=== PATIENT | female | born 1970 | race African-American/Black ===

== ENCOUNTER 2017-05-21 13:23 | Emergency (ER) | payer BC ==
[2017-05-21 14:48] LABS: INFLUENZA A PATIENT NEGATIVE (NEGATIVE)
[2017-05-21 14:50] LABS: INFLUENZA B PATIENT POSITIVE (NEGATIVE); OBC FLU VALID
[2017-05-21] MEDS ORDERED: ACETAMINOPHEN 500 MG TABLET PO (15:15)
[2017-05-21] MEDS ORDERED: IBUPROFEN 800 MG TABLET. PO (15:15)
[2017-05-21] MEDS: ONDANSETRON ODT 4 MG TAB.RAPDIS. PO (15:32)
[2017-05-21] MEDS: ACETAMINOPHEN 650 MG/20.3 ML SOLUTION. PO (15:40)
== END 2017-05-21 15:42 | disposition home or self-care (01) ==
LOC: ER 15:42
DX: J10.1 Influenza due to other identified influenza virus with other respiratory manifestations (principal)
CPT/HCPCS: 71046; 87804; 87804-59; 99285-25; Q0162

== ENCOUNTER 2020-11-09 02:43 | Emergency (ER) | payer BC, OTHER ==
[~2020-11-09] VITALS: Ht 154.9 cm; Wt 61.3 kg
[~2020-11-09 02:43] MED LIST: ONDA4TAB10 SL
[2020-11-09 04:08] LABS: BILIRUBIN,URINE NEGATIVE (NEG); CLARITY,URINE CLEAR; COLOR,URINE YELLOW; NITRITE,URINE NEGATIVE (NEG); PROTEIN,URINE NEGATIVE (NEG-TRACE)
[2020-11-09 04:19] LABS: BACTERIA,URINE 0 /HPF (0-FEW); RBC,URINE 0 /HPF (0-2); WBC,URINE OCC /HPF (0-4)
[2020-11-09] MEDS ORDERED: KETOROLAC 30 MG/ML VIAL. IM ONE (04:30)
[2020-11-09] MEDS ORDERED: LIDOCAINE (700MG/PATCH) PATCH. TD ONE (04:30)
[2020-11-09] MEDS ORDERED: HYDROmorphone 2 MG/ML VIAL IM ONE (04:30)
--- NOTE | 2020-11-09 06:02 | PHYS DOC ---
Past Medical History Past Medical History: No Pertinent History (EM JONES DO) Past Surgical History: Other Additional Past Surgical Histo: ENDOMETRIOSIS SX (EM JONES DO) Smoking Status: Never Smoker Alcohol Use: None Drug Use: None (EM JONES DO) General Adult EDM: Chief Complaint: BACK PAIN OR INJURY HPI: HPI: 50 old female who denies any significant past medical history presents the ED with complaints of low back pain rating to both sides that started just prior to arrival while working at [employer]. Patient states she knelt down to pick something up and felt something pull. Denies any prior back injury or trauma. No associated blunt injury. Denies any history of trauma, history of IV drug use, history of cancer, history of sciatica, history of malignancy, history of immunocompromise state, neurologic complaints including saddle anesthesia, weakness or paresthesias, urinary retention, bowel or bladder incontinence, night pain, fever/chills/night sweats, unexplained weight loss, anticoagulants or coagulopathy, prolonged steroid use, presence of contusions or abrasions. (EM JONES DO) Review of Systems: Review of Systems: Constitutional: Denies fever or chills. [] Eyes: Denies change in visual acuity. [] HENT: Denies nasal congestion or sore throat. [] Respiratory: Denies cough or shortness of breath. [] Cardiovascular: Denies chest pain or edema. [] GI: Denies nausea, vomiting, : Denies urinary or bowel retention or incontinence, denies saddle anesthesia Musculoskeletal: Denies cva ttp or joint pain. [] Integument: Denies rash or diaphoresis Neurologic: Denies headache, neck pain, focal weakness or sensory changes. [] Endocrine: Denies polyuria or polydipsia. [] Lymphatic: Denies swollen glands. [] Psychiatric: Denies depression or anxiety. [] (EM JONES DO) Heart Score: C/O Chest Pain: No Risk Factors: Risk Factors: DM, Current or recent (<one month) smoker, HTN, HLP, family history of CAD, obesity. Risk Scores: Score 0 - 3: 2.5% MACE over next 6 weeks - Discharge Home Score 4 - 6: 20.3% MACE over next 6 weeks - Admit for Clinical Observation Score 7 - 10: 72.7% MACE over next 6 weeks - Early Invasive Strategies (EM JONES DO) Current Medications: Current Medications Medications (Trade) Dose Ordered Sig/[facility] Start Time Stop Time Status Last Admin Dose Admin Hydromorphone HCl (Dilaudid) 1 mg 1X ONCE 11/09/20 04:30 11/09/20 04:31 DC 11/09/20 04:39 1 MG Ketorolac Tromethamine (Toradol 30mg Vial) 30 mg 1X ONCE 11/09/20 04:30 11/09/20 04:31 DC 11/09/20 04:36 30 MG Lidocaine (Lidoderm) 1 patch 1X ONCE 11/09/20 04:30 11/09/20 04:31 DC 11/09/20 04:41 1 PATCH (EM JONES DO) Allergies: Allergies: Allergies Coded Allergies Type Severity Reaction Last Updated Verified No Known Drug Allergies 05/21/17 No (EM JONES DO) Physical Exam: PE: Constitutional: Well developed, well nourished, no acute distress at rest, non- toxic appearance. HENT: Normocephalic, atraumatic, Eyes: EOMI, conjunctiva normal, no discharge. Neck: Normal range of motion, supple, Cardiovascular: S1/2 present, regular rhythm Lungs & Thorax: Speaking in full sentences, bilateral equal chest rise, no tachypnea or increased work of breathing Abdomen: soft, no tenderness, Skin: Warm, dry, no erythema, no rash. [] Back: ttp over L4/5 w/no step offs/normal appearing skin, no CVA tenderness. [] Extremities: No tenderness, no cyanosis, straight leg positive bilaterally but worse on right side Neurologic: Alert and oriented X 3, normal motor function, normal sensory function, no focal deficits noted. [] Psychologic: Affect normal, judgement normal, mood normal. [] (EM JONES DO) PE: Constitutional: Well developed, well nourished, no acute distress, non-toxic appearance HENT: Normocephalic, atraumatic Eyes: Conjunctiva normal, no discharge Neck: Normal range of motion, supple Lungs & Thorax: No respiratory distress, equal chest rise and fall Abdomen: Soft, no tenderness Skin: Warm, dry, no erythema, no rash Back: No midline tenderness, right paraspinal lumbar tenderness on palpation, no CVA tenderness Extremities: No tenderness, ROM intact, no edema Neurologic: Alert and oriented X 3, no focal deficits noted Psychologic: Affect normal, judgment normal (ANTONY ROSA DO) Current Patient Data: Labs: Laboratory Tests Test 11/09/20 03:53 Urine Collection Type Unknown Urine Color Yellow Urine Clarity Clear Urine pH 7.0 (<5.0-8.0) Urine Specific [place] >=1.030 (1.000-1.030) Urine Protein Negative mg/dL (NEG-TRACE) Urine Glucose (UA) Negative mg/dL (NEG) Urine Ketones (Stick) Trace mg/dL (NEG) Urine Blood Negative (NEG) Urine Nitrite Negative (NEG) Urine Bilirubin Negative (NEG) Urine Urobilinogen Dipstick 1.0 mg/dL (0.2 mg/dL) Urine Leukocyte Esterase Negative (NEG) Urine RBC 0 /HPF (0-2) Urine WBC Occ /HPF (0-4) Urine Squamous Epithelial Cells Few /LPF Urine Bacteria 0 /HPF (0-FEW) Urine Mucus Mod /LPF Vital Signs: Vital Signs Date Time Temp Pulse Resp B/P (MAP) Pulse Ox O2 Delivery O2 Flow Rate FiO2 11/09/20 04:39 18 100 Room Air 11/09/20 04:18 84 136/82 (100) 11/09/20 02:45 97.6 97.6 (EM JONES DO) EKG: EKG: [] (EM JONES DO) Radiology/Procedures: Radiology/Procedures: [] (EM JONES DO) Radiology/Procedures: PROCEDURE: CT LUMBAR SPINE WO CONTRAST INDICATION: Reason: back pain, disc herniation? / Spl. Instructions: / History: . COMPARISON: September 09, 2020 CT abdomen TECHNIQUE: Axial CT images obtained through the lumbar spine without contrast. One or more of the following individualized dose reduction techniques were utilized for this examination: 1. Automated exposure control; 2. Adjustment of the mA and/or kV according to patient size; 3. Use of iterative reconstruction technique. FINDINGS: No evidence of dislocation. Vertebral body heights are maintained. No definite acute fracture or dislocation. Bilateral renal stones at partially visualized abdomen. There is some degenerative changes of the lumbar spine with osteophyte formation the vertebral body endplates as well as disc protrusions with uncovertebral and facet hypertrophy. These disc protrusions are seen throughout the lumbar spine but most prominent at L3-4 L4-5 with mass effect on the anterior aspect of the thecal sac with mild narrowing of the central canal. There is also encroachment on the inferior aspect of the terminal foramina bilaterally which is mild. IMPRESSION: * No acute fracture or dislocation. * There is some degenerative changes of the lumbar spine with disc protrusions and mild osteophyte formation with facet and ligamentum flavum hypertrophy Electronically signed by: Gregorio Stevenson MD (11/09/2020 6:10 AM) [id number] (ANTONY ROSA DO) Course & Med Decision Making: Course & Med Decision Making Pertinent Labs and Imaging studies reviewed. (See chart for details) Concern for midline low back pain in the absence of any neurologic deficits, no blunt trauma. CT imaging pending. Due to shift change patient was signed out to oncoming physician Dr. Rosa for further medical evaluation and disposition. (EM JONES DO) Course & Med Decision Making 0600- Sign out received from Dr. Jones for patient with back pain. Pain previously addressed. UA without signs of infection. CT lumbar spine pending at time of sign out. Patient seen and evaluated by myself. CT without fracture or dislocation. Patient stable for discharge with outpatient follow-up with PCP/Pain management. Pain management referral provided. Discussed findings and plan with patient, who acknowledges understanding and agreement. (ANTONY ROSA DO) Dragon Disclaimer: Dragon Disclaimer: This electronic medical record was generated, in whole or in part, using a voice recognition dictation system. (EM JONES DO) Departure Departure Impression: Primary Impression: Back pain Qualified Codes: M54.41 - Lumbago with sciatica, right side Disposition: HOME / SELF CARE / HOMELESS Condition: STABLE Referrals: NO PCP (PCP) Follow-up with your primary care physician in 24 to 48 hours OR FOLLOW UP WITH FAMILY MEDICINE: [address] [facility] [place] [address] SHAHNAZ CHILDERS MD Patient Instructions: Back Pain, Adult, Sciatica, [id number] Additional Instructions: FOLLOW UP WITH ORTHOPEDICS: FOR outpatient MANAGEMENT of back pain Orth[facility] [address] [place], [address] [place] [address] OR [facility] [address] [place] [address] EMERGENCY DEPARTMENT GENERAL DISCHARGE INSTRUCTIONS Thank you for coming to [facility] Emergency Department (ED) today and trusting us with you care. We trust that you had a positive experience in our Emergency Department. If you wish to speak to the department management, you may call the Director at [phone]. YOUR FOLLOW UP INSTRUCTIONS ARE FOLLOWS: 1. Do you have a private Doctor? If you do not have a private doctor, please ask for a resource list of physicians or clinics that may be able to assist you with follow up care. 2. The Emergency Physicain has interpreted your x-rays. The X-Ray specialist will also review them. If there is a change in the findings, you will be notified in 48 hours when at all possible. 3. A lab test or culture has been done, your results will be reviewed and you will be notified if you need a change in treatment. ADDITIONAL INSTRUCTIONS AND INFORMATION: 1. Your care today has been supervised by a physician who is specially trained in emergency care. Many problems require more than one evaluation for a complete diagnosis and treatment. We recommend that you schedule your follow up appointment as recommended to ensure complete treatment of you illness or injury. If you are unable to obtain follow up care and continue to have a problem, or if your condition worsens, we recommend that you return to the ED. 2. We are not able to safely determine your condition over the phone nor are we able to give sound medical advice over the phone. For these safety reasons, if you call for medical advice we will ask you to come to the ED for further evaluation. 3. If you have any questions regarding these discharge instructions please call the ED at [phone]. SAFETY INFORMATION: In the interest of safety, wellness, and injury prevention; we encourage you to wear your sealbelt, if you smoke; quite smoking, and we encourage family to use a protective helmet for bicycling and other sporting events that present an increased risk for head injury. IF YOUR SYMPTOMS WORSEN OR NEW SYMPTOMS DEVELOP, OR YOU HAVE CONCERNS ABOUT YOUR CONDITION; OR IF YOUR CONDITION WORSENS WHILE YOU ARE WAITING FOR YOUR FOLLOW UP APPOINTMENT; EITHER CONTACT YOUR PRIMARY CARE DOCTOR, THE PHYSICIAN WHOSE NAME AND NUMBER YOU WERE GIVEN, OR RETURN TO THE ED IMMEDIATELY. Scripts Lidocaine (Lidocaine PATCH ) 1 Each Adh..patch 1 EACH TP DAILY for FOR LOCAL PAIN, #30 PATCH REMOVE AFTER 12 HOURS Prov: ANTONY ROSA DO 11/09/20 Hydrocodone Bit/Acetaminophen (HYDROCODONE-APAP 5-325 ) 1 Tab Tablet 0.5-1 TAB PO PRN Q6HRS PRN for PAIN, #10 TAB 0 Refills Prov: ANTONY ROSA DO 11/09/20 Orphenadrine Citrate (ORPHENADRINE CITRATE) 100 Mg Tablet.er 100 MG PO BID PRN for MUSCLE PAIN, #14 TAB Prov: ANTONY ROSA DO 11/09/20 Prednisone (PREDNISONE) 20 Mg Tablet 2 TAB PO DAILY, #8 TAB Start this prescription tomorrow, Wednesday11/10/20 Prov: ANTONY ROSA DO 11/09/20 EM JONES DO Nov 09, 2020 06:02 ANTONY ROSA DO Nov 09, 2020 06:25
--- NOTE | 2020-11-09 06:13 | RAD ---
INDICATION: Reason: back pain, disc herniation? / Spl. Instructions: / History: . COMPARISON: September 09, 2020 CT abdomen TECHNIQUE: Axial CT images obtained through the lumbar spine without contrast. One or more of the following individualized dose reduction techniques were utilized for this examinat ion: 1. Automated exposure control; 2. Adjustment of the mA and/or kV according to patient size; 3 . Use of iterative reconstruction technique. FINDINGS: No evidence of dislocation. Vertebral body heights are maintained. No definite acute fracture or dislocation. Bilateral renal stones at partially visualized abdomen. There is some degenerative changes of the lumbar spine with osteophyte formation the vertebral body e ndplates as well as disc protrusions with uncovertebral and facet hypertrophy. These disc protrusions are seen throughout the lumbar spine but most prominent at L3-4 L4-5 with mass effect on the anterio r aspect of the thecal sac with mild narrowing of the central canal. There is also encroachment on th e inferior aspect of the terminal foramina bilaterally which is mild. IMPRESSION: * No acute fracture or dislocation. * There is some degenerative changes of the lumbar spine with disc protrusions and mild osteophyte f ormation with facet and ligamentum flavum hypertrophy Electronically signed by: Gregorio Stevenson MD (11/09/2020 6:10 AM) [id number]
[2020-11-09] MEDS ORDERED: HYDR-2761 PO (06:39)
[2020-11-09] MEDS ORDERED: LIDO700A21 TP (06:39)
[2020-11-09] MEDS ORDERED: PRED20TA PO (06:39)
[2020-11-09] MEDS ORDERED: ORPH100T PO (06:39)
[2020-11-09 06:48] VITALS: BP 137/83
[2020-11-09] MEDS ORDERED: DEXAMETHASONE 4 MG TABLET PO ONE (07:00)
== END 2020-11-09 07:11 | disposition home or self-care (01) ==
LOC: ER 02:43
DX: M54.41 Lumbago with sciatica, right side (principal)
CPT/HCPCS: 72131; 81001; 96372; 99285; J1170; J1885